=== PATIENT | male | born 1950 | race Caucasian/White ===

== ENCOUNTER → 2016-09-30 | Outpatient (CLI) | payer OTHER ==
[~2016-09-30] MED LIST: ACET-1311 PO; ASPEC81 PO; ATOR-22 PO; B-CO1CAP17 PO; CHOL1000 PO; ESCI10TA17 PO; EZET10TA38 PO; HYDR-5688 PO; IBUP-1050 PO; INDSR/120 PO; MULT-506 PO; Neurontin PO; OMEG10007 PO; VITAMIN B COMPLEX PO; ZNF4 PO
--- NOTE | 2016-09-30 09:22 | DIAGNOSTIC IMAGING REPORT ---
RENAL ULTRASOUND HISTORY: N28.1 Cyst of kidney, [id number] COMPARISON: Abdomen and pelvis CT 09/23/2015. FINDINGS: Right kidney: 10.9 cm. No hydronephrosis. Normal corticomedullary differentiation and cortical thickness. There are few cysts within the right kidney with the largest measuring 1.6 cm. Left kidney: 11.5 cm. No hydronephrosis. Normal corticomedullary differentiation and cortical thickness. There are few cysts with the largest measuring 1.8 cm. There is a bilobed cyst versus 2 adjacent cysts within the interpolar region of the left kidney which measures 1.6 cm. Bladder: No bladder wall thickening. The bilateral ureteral jets were identified. IMPRESSION: Bilateral renal cysts. No hydronephrosis. Electronically signed by: Maximo Lainez M.D. 09/30/2016 9:21 AM Dictated Date/Time: 09/30/2016 9:19 AM
== END | disposition home or self-care (01) ==
LOC: C.ULTR 08:59
PROVIDERS: ATTEND Urology
DX: N28.1 Cyst of kidney, acquired (principal)

== ENCOUNTER → 2016-10-11 | Outpatient (CLI) | payer OTHER | END | disposition home or self-care (01) | LOC: C.PATHSPEC 17:14 | PROVIDERS: ATTEND Urology | DX: T14.8 Other injury of unspecified body region (principal); X58.XXXA Exposure to other specified factors, initial encounter ==

== ENCOUNTER 2016-10-13 09:07 | Day surgery (SDC) | payer OTHER ==
[2016-10-11 08:22] VITALS: BMI 31.0
--- NOTE | 2016-10-11 08:58 | PAT Medication Instructions ---
Service Date Oct 11, 2016. Current Home Medication List Aspirin Enteric Coated (Ecotrin Or Generic *), 81 MG PO QAM Atorvastatin (Lipitor), 20 MG PO HS Cholecalciferol (Vitamin D3), 1 TAB PO BID Fish Oil ([place]-3), 1 CAP PO BID Ibuprofen (Advil), 400 MG PO PRN Multivitamin (Multivitamin), 1 TAB PO QAM Propranolol La (Inderal La), 120 MG PO QAM Vitamin B Cmplx/Vitc/Folic Ac (Nephrocaps), 1 CAP PO QPM PRN for PM Medication Instructions For Your Scheduled Surgery - Check with surgeon for instructions: Aspirin Enteric Coated (Ecotrin Or Generic *), 81 MG PO QAM Ibuprofen (Advil), 400 MG PO PRN - Hold the following medications starting 10/11/16: Fish Oil ([place]-3), 1 CAP PO BID - Hold the following medications the morning of surgery: Cholecalciferol (Vitamin D3), 1 TAB PO BID Multivitamin (Multivitamin), 1 TAB PO QAM - Take the following medications the morning of surgery with a sip of water: Propranolol La (Inderal La), 120 MG PO QAM - Take the following medications as scheduled the night before surgery: Vitamin B Cmplx/Vitc/Folic Ac (Nephrocaps), 1 CAP PO QPM PRN for PM Cholecalciferol (Vitamin D3), 1 TAB PO BID Atorvastatin (Lipitor), 20 MG PO HS If you have any questions please call us at [phone] or [phone] or [phone]
--- NOTE | 2016-10-11 09:19 | DIAGNOSTIC IMAGING REPORT ---
TWO VIEW CHEST CLINICAL HISTORY: Preoperative examination. FINDINGS: PA and lateral chest radiographs are compared to study dated 08/17/2006. The heart is enlarged. The mediastinal contour is within normal limits. The lungs and pleural spaces are clear. There is no pneumothorax. The bony thorax appears intact. Fusion hardware is noted in the lower cervical spine. IMPRESSION: Cardiomegaly with no active disease in the chest. Electronically signed by: David Simms M.D. 10/11/2016 9:18 AM Dictated Date/Time: 10/11/2016 9:17 AM
[2016-10-11 09:31] LABS: BASO % 0.5 %; BASO ABS # 0.03 K/uL (0-0.2); COMPLETE YES; EOS % 4.1 %; HEMATOCRIT 39.6 % (42-52); IG% 0.5 %; LYMPH % 23.5 %; LYMPH ABS # 1.55 K/uL (1.2-3.4); MEAN CELL VOLUME 96.1 fL (80-100); MEAN CORPUSCULAR HEMOGLOBIN 32.5 pg (25-34); MEAN CORPUSCULAR HGB CONC 33.8 g/dl (32-36); MEAN PLATELET VOLUME 9.3 fL (7.4-10.4); MONO % 9.4 %; PLATELET COUNT 239 K/uL (130-400); RED BLOOD COUNT 4.12 M/uL (4.7-6.1)
[2016-10-11 09:36] LABS: URINE APPEARANCE CLEAR (CLEAR); URINE BILIRUBIN NEG (NEG); URINE COLOR DK YELLOW; URINE NITRITE NEG (NEG); URINE PH 5.5 (4.5-7.5); URINE SPECIFIC GRAVITY 1.028 (1.000-1.030); UROBILINOGEN NEG (NEG)
[2016-10-11 09:40] LABS: MANUAL MICROSCOPIC REQUIRED? NO; REVIEW REQ? NO
[2016-10-11 09:41] LABS: INR 0.9 (0.9-1.1); PARTIAL THROMBOPLASTIN RATIO 1.1; PROTHROMBIN TIME (PATIENT) 10.1 SECONDS (9.0-12.0)
[2016-10-11 10:32] LABS: BUN/CREATININE RATIO 13.2 (10-20); CREATININE 1.2 mg/dl (0.60-1.40); POTASSIUM 3.7 mmol/L (3.5-5.1)
--- NOTE | 2016-10-12 11:37 | History and Physical ---
History & Physical Date Oct 12, 2016. Chief Complaint Left knee hematoma History of Present Illness The patient is a 65 year old male with complaints of hematoma left knee. He had attempted aspiration in the office without success. Additional History Hepatic Disease: No Endocrine Disorder: No Kidney Disease: No Hypertension: No Heart Disease: No Bleeding Tendencies: No Infectious Diseases: No Allergies Coded Allergies: Primidone (Verified Allergy, Unknown, DIZZINESS, 10/11/16) Home Medications Scheduled Aspirin Enteric Coated (Ecotrin Or Generic *), 81 MG PO QAM Atorvastatin (Lipitor), 20 MG PO HS Cholecalciferol (Vitamin D3), 1 TAB PO BID Fish Oil ([place]-3), 1 CAP PO BID Ibuprofen (Advil), 400 MG PO PRN Multivitamin (Multivitamin), 1 TAB PO QAM Propranolol La (Inderal La), 120 MG PO QAM Scheduled PRN Vitamin B Cmplx/Vitc/Folic Ac (Nephrocaps), 1 CAP PO QPM PRN for PM Physical Examination Skin: warm/dry Eyes: normal inspection, EOMI ENT: normal ENT inspection Head: normocephalic Neck: supple Respiratory/Chest: lungs clear, normal breath sounds Cardiovascular: regular rate, rhythm Abdomen / GI: normal bowel sounds, non tender Extremities: + pertinent finding (Left knee hematoma proximal medial tibia region) Diagnosis Hematoma left proximal tibia Plan of Treatment Evacuation of hematoma and possible application of wound vac left knee
[~2016-10-13] VITALS: Ht 177.8 cm; Wt 97.9 kg
[~2016-10-13 09:07] MED LIST changes: -ACET-1311 PO; -ESCI10TA17 PO; -EZET10TA38 PO; -HYDR-5688 PO; +LACTATED RINGER'S 1000ML 1,000 ML IV SCH; +LACTATED RINGER'S 1000ML 500 ML IV ONE; -Neurontin PO; -VITAMIN B COMPLEX PO; -ZNF4 PO
[2016-10-13] MEDS ORDERED: FENTANYL CITRATE INJ 50 MCG/1 ML 2 ML VIAL ONE ×2 (09:27→12:06)
[2016-10-13] MEDS ORDERED: MIDAZOLAM HCL 1 MG/ML 2ML VIAL ONE (09:27)
[2016-10-13] MEDS ORDERED: PROPOFOL IV EMULSION 10 MG/ML 20 ML VIAL IV ONE (09:32)
[2016-10-13] MEDS ORDERED: LIDOCAINE HCL 2% 2 ML VIAL (20MG/ML) ONE (09:32)
[2016-10-13] MEDS ORDERED: EpHEDrine SULFATE 50MG/5ML SYR ONE (09:36)
[2016-10-13] MEDS ORDERED: PHENYLEPHRINE 100MCG/ML 5ML SYR ONE (09:36)
[2016-10-13 09:40] VITALS: BP 113/76; PULSE 59; TEMP 36.6; O2SAT 94; Ht 177.8 cm; Wt 97.9 kg
--- NOTE | 2016-10-13 10:37 | History & Physical Bridge Note ---
H&P Re-Evaluation Bridge Note: I have examined the patient, reviewed the History & Physical and in the interval since the performance of the History & Physical I have noted the following changes of clinical significance: No changes noted
[2016-10-13] MEDS ORDERED: DEXAMETHASONE SOD INJ 4 MG/ML VIAL ONE (11:50)
[2016-10-13] MEDS ORDERED: ONDANSETRON INJ 2 MG/ML 2 ML VIAL ONE (11:50)
[2016-10-13] MEDS ORDERED: EpHEDrine SULFATE INJ 50 MG/ML AMP IV PRN (12:00)
[2016-10-13] MEDS ORDERED: ONDANSETRON INJ 2 MG/ML 2 ML VIAL IV PRN (12:00)
[2016-10-13] MEDS ORDERED: FENTANYL CITRATE INJ 50 MCG/1 ML 2 ML VIAL IV PRN (12:00)
[2016-10-13] MEDS ORDERED: ATROPINE SULFATE 0.1 MG/ML 5ML SYR IV PRN (12:00)
--- NOTE | 2016-10-13 12:23 | [facility] Operative Report ---
Operative Report Operative Date Oct 13, 2016. Pre-Operative Diagnosis Hematoma, Left Proximal Tibia Post-Operative Diagnosis same as preoperative Procedure(s) Performed Evacuation of Hematoma, Left Knee left leg was prepped and draped in usual sterile manner. No tourniquet was applied. Longitudinal incision made over the palpable hematoma. The incision was roughly 1.5 cm in length. Blunt dissection was taken down through subcutaneous tissues tissue hematoma was identified and evacuated. Roughly 150 mL of clotted blood were removed. The wound was surgically irrigated until fluid ran clear with a bulb syringe. Suction is used to dry the wound hemostasis obtained and Tisseel and Aristocort for both utilized to aid in seroma prevention. The wound was closed using 3-0 nylon mattress sutures. Sterile dressing of Adaptic 4 x 4's and OpSite was applied. The double length Sharif was applied. The patient tolerated the procedure well. Surgeon Dr. Vazquez Estimated Blood Loss 100ml old blood, 5ml new blood Findings hematoma Specimens None per surgeon Disposition Recovery Room / PACU I attest to the content of the Intraoperative Record and any orders documented therein. Any exceptions are noted below.
[2016-10-13] MEDS ORDERED: SODIUM CHLORIDE 0.9% 1000ML 1,000 ML IV SCH (12:25)
[2016-10-13] MEDS ORDERED: HYDR-5688 PO (12:27)
[2016-10-13] MEDS ORDERED: TISSEEL FIBRIN SEALANT 4ML TOP ONE (12:28)
[2016-10-13] MEDS ORDERED: ARISTA ABSORBABLE HEMOSTAT 3GM TOP ONE (12:29)
[2016-10-13] MEDS ORDERED: OXYCODONE/ACETAMINOPHEN 5-325 TAB PO PRN (12:30)
[2016-10-13] MEDS ORDERED: HYDROCODONE/ACETAMOPHEN 5/325MG TAB PO PRN (12:30)
--- NOTE | 2016-10-13 12:30 | Discharge Instructions ---
Discharge Instructions Date of Service Oct 13, 2016. Visit Reason for Visit: Left Knee Hematoma Discharge Discharge Diagnosis / Problem: Left knee hematoma Discharge Goals Goal(s): Decrease discomfort, Improve function Activity Recommendations Activity Limitations: as noted below Weightbearing Status: Left weightbearing (as tolerated) Anesthesia . Post Anesthesia Instructions: If you have had General Anesthesia or IV Sedation: * Do not drive today. * Resume driving when surgeon permits. * Do not make important decisions or sign legal documents today. * Call surgeon for: 1. Temperature elevations greater than 101 degrees F. 2. Uncontrollable pain. 3. Excessive bleeding. 4. Persistent nausea and vomiting. 5. Medication intolerance (nausea, vomiting or rash). * For nausea and vomiting use only clear liquids such as: tea, soda, bouillon until nausea subsides, then gradually increase diet as tolerated. * If you have any concerns or questions, call your surgeon's office. If physician is unavailable and it is an emergency, call 911 or go to the nearest emergency room. . Instructions / Follow-Up Instructions / Follow-Up Maintain dressing x 48 hours then may remove and shower. Apply light dressing to wound as needed. Frequent ice to area as needed. Light daily activities as tolerated. Diet Recommendations Recommended Home Diet: resume previous diet Procedures Procedures Performed: Evacuation of Hematoma, Left Knee left leg was prepped and draped in usual sterile manner. No tourniquet was applied. Longitudinal incision made over the palpable hematoma. The incision was roughly 1.5 cm in length. Blunt dissection was taken down through subcutaneous tissues tissue hematoma was identified and evacuated. Roughly 150 mL of clotted blood were removed. The wound was surgically irrigated until fluid ran clear with a bulb syringe. Suction is used to dry the wound hemostasis obtained and Tisseel and Aristocort for both utilized to aid in seroma prevention. The wound was closed using 3-0 nylon mattress sutures. Sterile dressing of Adaptic 4 x 4's and OpSite was applied. The double length Sharif was applied. The patient tolerated the procedure well. Pending Studies Studies pending at discharge: no Medical Emergencies . Who to Call and When: Medical Emergencies: If at any time you feel your situation is an emergency, please call 911 immediately. . Non-Emergent Contact Non-Emergency issues call your: Surgeon Call Non-Emergent contact if: temperature is above 101.5, your pain is not controlled, wound has increased drainage, wound has increased redness . . "Provider Documentation" section prepared by Randall Fisher PA-C. . [place] Drug Monitoring Program Search Results: patient reviewed within database
--- NOTE | 2016-10-13 13:03 | Anesthesiology Progress Note ---
Anesthesia Post Op Note Date & Time Oct 13, 2016 at 13:02 Vital Signs Pain Intensity: 0 Vital Signs Past 12 Hours Date Time Temp Pulse Resp B/P (MAP) Pulse Ox O2 Delivery O2 Flow Rate FiO2 10/13/16 12:50 69 18 113/78 98 Mask 2 10/13/16 12:40 60 14 104/77 98 Mask 4 10/13/16 12:30 59 14 105/73 95 Mask 10 10/13/16 12:20 36.2 59 14 99/72 95 Mask 10 10/13/16 09:40 36.6 59 18 113/76 (88) 94 Room Air Notes Mental Status: alert / awake / arousable, participated in evaluation Pt Amnestic to Procedure: Yes Nausea / Vomiting: adequately controlled Pain: adequately controlled Airway Patency, RR, SpO2: stable & adequate BP & HR: stable & adequate Hydration State: stable & adequate Anesthetic Complications: no major complications apparent
[2016-10-13 13:10] VITALS: BP 117/81; PULSE 63; TEMP 35.9; O2SAT 96
[2016-10-13 13:40] VITALS: BP 134/84; PULSE 65; O2SAT 95
[2016-10-13 14:10] VITALS: BP 136/91; PULSE 68; TEMP 36.2; TEMP 36.3; O2SAT 96
== END 2016-10-13 14:14 | disposition home or self-care (01) ==
LOC: C.ACU 09:07
DX: M79.81 Nontraumatic hematoma of soft tissue (principal); Z79.82 Long term (current) use of aspirin

== ENCOUNTER → 2016-11-02 | Outpatient (CLI) | payer OTHER ==
[~2016-11-02] MED LIST changes: +HYDR-5688 PO; -LACTATED RINGER'S 1000ML 1,000 ML IV SCH; -LACTATED RINGER'S 1000ML 500 ML IV ONE
[2016-11-02 12:30] LABS: CHOLESTEROL/HDL RATIO 3.9
== END | disposition home or self-care (01) ==
LOC: C.LABPVFM 10:28
PROVIDERS: ATTEND Family Medicine
DX: E78.5 Hyperlipidemia, unspecified (principal)

== ENCOUNTER → 2017-05-31 | Outpatient (CLI) | payer BC ==
[~2017-05-31] MED LIST changes: -HYDR-5688 PO
[2017-05-31 12:18] LABS: HEMATOCRIT 48.7 % (42-52); HEMOGLOBIN 16.6 g/dL (14.0-18.0); MEAN CELL VOLUME 94.7 fL (80-100); MEAN CORPUSCULAR HEMOGLOBIN 32.3 pg (25-34); MEAN CORPUSCULAR HGB CONC 34.1 g/dl (32-36); MEAN PLATELET VOLUME 9.7 fL (7.4-10.4); PLATELET COUNT 220 K/uL (130-400); RED CELL DISTRIBUTION WIDTH CV 12.5 % (11.5-14.5); RED CELL DISTRIBUTION WIDTH SD 43.2 fL (36.4-46.3); WHITE BLOOD COUNT 7.21 K/uL (4.8-10.8)
[2017-05-31 13:43] LABS: ALBUMIN 3.9 gm/dl (3.4-5.0); ALKALINE PHOSPHATASE 96 U/L (45-117); ALT/SGPT 35 U/L (12-78); AST/SGOT 27 U/L (15-37); BLOOD UREA NITROGEN 12 mg/dl (7-18); CALCIUM 8.9 mg/dl (8.5-10.1); CARBON DIOXIDE 31 mmol/L (21-32); CHOLESTEROL 139 mg/dl (0-200); CREATININE 1.21 mg/dl (0.60-1.40); GLUCOSE 93 mg/dl (70-99); LDL CHOLESTEROL CALCULATED 59 mg/dl; POTASSIUM 4.1 mmol/L (3.5-5.1); SODIUM 137 mmol/L (136-145); TOTAL PROTEIN 7.4 gm/dl (6.4-8.2)
== END | disposition home or self-care (01) ==
LOC: C.LABPVFM 08:04
PROVIDERS: ATTEND Family Medicine
DX: Z00.00 Encounter for general adult medical examination without abnormal findings (principal); E78.5 Hyperlipidemia, unspecified

== ENCOUNTER → 2017-11-01 | Outpatient (CLI) | payer BC ==
[2017-11-01 13:34] LABS: ALBUMIN 3.6 gm/dl (3.4-5.0); ALKALINE PHOSPHATASE 96 U/L (45-117); ALT/SGPT 37 U/L (12-78); AST/SGOT 28 U/L (15-37); BLOOD UREA NITROGEN 13 mg/dl (7-18); CALCIUM 9.2 mg/dl (8.5-10.1); CARBON DIOXIDE 27 mmol/L (21-32); CHOLESTEROL 142 mg/dl (0-200); CREATININE 1.28 mg/dl (0.60-1.40); GLUCOSE 106 mg/dl (70-99); LDL CHOLESTEROL CALCULATED 67 mg/dl; POTASSIUM 4.4 mmol/L (3.5-5.1); SODIUM 137 mmol/L (136-145); TOTAL PROTEIN 7.3 gm/dl (6.4-8.2)
== END | disposition home or self-care (01) ==
LOC: C.LABPVFM 10:48
PROVIDERS: ATTEND Family Medicine
DX: E55.9 Vitamin D deficiency, unspecified (principal); E78.5 Hyperlipidemia, unspecified